=== PATIENT | female | born 1970 | race Caucasian/White ===

== ENCOUNTER 2019-06-16 08:30 | Inpatient (IN) | payer OTHER ==
--- NOTE | 2019-06-10 13:27 | HP ---
Admitting History and Physical - Primary Care Physician PCP: Joseph Roblero - Admission Chief Complaint: Right breast cancer History of Present Illness: 48 year old pre with family H/O breast cancer premenapausal female with mammogram and US 06/2018 wnl . She had a MRI at the same time which showed right breast 12:00 and 1:00 areas of enhancement and were bxs and benign. he underwent a Bilateral MRI 04/2019 which showed bilateral findings and she had a Mammogram and US 04/2019 which did not correlate with Breast MRI findings. She underwent 2 right MRI breast core bxs central and upper outer quadrant. 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 The upper outer quadrant showed benign findings. Barbell clip.She underwent MRI core bxs left breast upper outer quadrant and lower outer quadrant which showed fibrocystic changes History Source: Patient Limitations to Obtaining History: No Limitations - Past Surgical History Additional Past Surgical History: Ablation 14 yrs ago heavy menses - Smoking History Smoking history: Never smoked Have you smoked in the past 12 months: No - Alcohol/Substance Use Hx Alcohol Use: Yes (social) Home Medications - Allergies Allergies/Adverse Reactions: Allergies Allergy/AdvReac Type Severity Reaction Status Date / Time No Known Allergies Allergy Verified 06/10/19 13:28 Family Disease History - Family Disease History Family Disease History: CA: Grandparent (mat GGM uterine ca// pat GGM uterine ca ), Mother (breast ca 56 and JANNA 42 benign) Physical Examination Constitutional: Yes: Well Nourished Breast(s): Yes: Other (moderately ptotic B cup with obvious bruiding form bxs. some thickening upper aspect of left breast and outer aspect right breast no masses or axillary masses palpated) Problem List - Problems (1) Breast cancer, right breast Code(s): C50.911 - MALIGNANT NEOPLASM OF UNSP SITE OF RIGHT FEMALE BREAST Qualifiers: Breast location: central portion of breast Estrogen receptor status: positive Patient sex: female Qualified Code(s): C50.111 - Malignant neoplasm of central portion of right female breast; Z17.0 - Estrogen receptor positive status [ER+] Assessment/Plan Bilateral total mastectomies , right sentenel node biopsy, lymphoscintogram, possible axillary node dissection reconstruction
[2019-06-11 11:46] VITALS: BMI 21.8
[2019-06-16] MEDS ORDERED: BUPIVACAINE HCL/PF (5 MG/ML) 30 ML VIAL IJ ONE (12:57)
[2019-06-16] MEDS ORDERED: BUPIVACAINE LIPOSOME/PF (EXPAREL) 266 MG/20 ML VIAL ONE (12:57)
[2019-06-16] MEDS ORDERED: GENTAMICIN SO4 80 MG/2 ML VIAL ONE (12:57)
[2019-06-16] MEDS ORDERED: BUPIVACAINE HCL/PF 2.5 MG/ML - 30 ML VIAL IJ ONE (12:57)
[2019-06-16] MEDS ORDERED: SODIUM CHLORIDE 0.9% P/F 10 ML VIAL IJ ONE (12:57)
[2019-06-16] MEDS ORDERED: MIDAZOLAM HCL 2 MG/2 ML SINGLE DOSE VIAL ONE (12:59)
[2019-06-16] MEDS ORDERED: ceFAZolin SODIUM 1 GM VIAL ONE ×2 (13:01→14:24)
[2019-06-16] MEDS ORDERED: PROPOFOL 20 ML ONE (13:03)
[2019-06-16] MEDS ORDERED: ROCURONIUM BROMIDE 50 MG/5 ML VIAL ONE ×3 (13:03→17:22)
[2019-06-16] MEDS ORDERED: DEXAMETHASONE SOD PHOSPHATE 4 MG/1 ML VIAL ONE (13:04)
[2019-06-16] MEDS ORDERED: ONDANSETRON 4 MG/2 ML VIAL ONE (13:04)
[2019-06-16] MEDS ORDERED: HYDROmorphone HCL/PF 1 MG/ML AMP ONE (16:40)
[2019-06-16] MEDS ORDERED: ZOLPIDEM TARTRATE 5 MG TABLET PO PRN (17:57)
[2019-06-16] MEDS ORDERED: DEXTROSE 5%-0.45% SALINE 1,000 ML IV SCH (18:00)
[2019-06-16] MEDS ORDERED: GLYCOPYRROLATE 0.2 MG/1 ML VIAL ONE (18:06)
[2019-06-16] MEDS ORDERED: NEOSTIGMINE METHYLSULFATE 0.5 MG/ML - 10 ML MDV ONE (18:06)
[2019-06-16] MEDS: ONDANSETRON 4 MG/2 ML VIAL IVPUSH PRN (18:50)
--- NOTE | 2019-06-16 21:01 | OP ---
DATE OF OPERATION: 06/16/2019 PREOPERATIVE DIAGNOSIS: Right breast central breast cancer. POSTOPERATIVE DIAGNOSIS: Right breast central breast cancer. PROCEDURE: Bilateral total nipple-sparing mastectomies through an inframammary approach with right axillary sentinel lymph node biopsy and bilateral subpectoral direct implant reconstruction with AlloDerm. PRIMARY SURGEON: Graciela Roblero MD SUPERVISOR [employer]INU[employer] W[employer] P[employer] MILL: GILA Lopez Primary surgeon for the bilateral direct implant reconstruction with AlloDerm is Dr. Graciela Grace. There were no complications. Briefly, the patient is a 48-year-old, G3, P2, premenopausal white female, with [place] and [place] descent, who has a history of bilateral MRI core biopsies back in 2018 which were benign. She then in 2019 was found to have some more bilateral MRI findings and underwent 2 separate right breast biopsies in the upper outer quadrants centrally, and the central biopsy came back as a low-grade tubular cancer was which ER/OK positive, HER-2/hannah negative. Separate left breast biopsies were benign. The patient was seen in consultation and given the option of just doing a partial mastectomy, sentinel lymph node biopsy, radiation; however, given these multiple MRI biopsies, with 4 clips in the right breast, 3 clips in the left breast, she decided that she wanted to do bilateral mastectomies and was offered a nipple-sparing technique. She was seen by Dr. Grace, our plastic surgeon, and chose to have direct implant reconstructions. She was brought in for her surgery on June 16, 2019. She first underwent a lymphoscintigraphy at [facility] and was brought to the holding area at [place]. In the holding area, site verification was made and informed consent was obtained. She was brought in to the operating room and laid on the OR table in a supine position. Venodynes were placed on the lower extremities prior to induction. She received general endotracheal anesthesia. Ancef 2 g was given prior to incision. Both breasts were sterilely prepped and draped in the usual fashion with the right arm prepped in the field. At this point, timeout was performed. The right sentinel lymph node biopsy was first performed. An incision was made just below the hair-bearing area of the right axilla and dissection was undertaken and 2 hot lymph nodes were easily found in the level 1 region of the right axilla, with the 1st one having a 10-second gamma count of 1932 and the 2nd with a 10-second gamma count of 2178. There were both sent down to frozen section and to Pathology and were benign. Background counts after removal of these 2 nodes was 18. At this point, the right mastectomy was performed through a 9-cm inframammary incision. The skin edges were everted and the breast was retracted inferiorly using Zurdo clamps. The skin flap was raised using the PEAK radiofrequency device superiorly to the level of the clavicle, medially to the level of the sternum, laterally to the level of the latissimus, and inferiorly below the level of the inframammary fold. The breast was taken down off the pectoralis major muscle from inferior medial to superior lateral, completely removed intact. It was oriented with a long lateral and short superior suture and weighed to allow for appropriate cosmetic result. Skin flaps were trimmed to remove all visual gross breast tissue. A retroareolar biopsy was taken underneath the right nipple-areolar complex and sent for frozen section, came back negative, so the right nipple was spared. Specimen radiograph of the right breast did show 3 of the biopsy clips with the H clip present on the specimen radiograph. Hemostasis was achieved and the wound was copiously irrigated with warm sterile saline. At this point, gloves and instruments were changed and the left breast nipple-sparing mastectomy was performed, again through a 9-cm symmetrical inframammary incision. The skin edges were everted and the breast was retracted inferiorly using Warrens clamps. The skin flap was raised using the PEAK radiofrequency device superiorly to the level of the clavicle, medially to the level of the sternum, laterally to the level of the latissimus, and inferiorly below the level of the inframammary fold. The breast was taken down off the pectoralis major muscle from inferior medial to superior lateral, completely removed intact. It was oriented with a long lateral and short superior suture and weighed to allow for appropriate cosmetic result. A retroareolar biopsy was taken underneath the left nipple-areolar complex and sent for frozen section, came back negative, so the left nipple was spared. Specimen radiograph of the left breast showed 2 of the 3 clips present in the specimen. Hemostasis was achieved and the wound was copiously irrigated with warm sterile saline. At this point, Dr. Grace became the primary surgeon and performed bilateral direct implant reconstruction in the subpectoral location. AlloDerm was sutured into the inferolateral aspects of both pectoralis major muscles to allow for the direct implant reconstruction. Two Dane drains were placed around each implant, brought through separate stab incisions on the lateral skin folds and secured in place using 3-0 nylon suture. All wounds will be closed by Plastic Surgery using interrupted 3-0 PDS suture and running 4-0 subcuticular PDS suture. All sponge and needle counts were correct at the end of the case, and estimated blood loss was about 100 mL. She was hemodynamically stable throughout. We did use the PEAK intraoperative skin perfusion device during the case, which showed good skin perfusion bilaterally. The patient will be admitted postoperatively, after she has recovered, for pain control and wound management. GRACIELA ROBLERO M.D. [id number]
[2019-06-16] MEDS: oxyCODONE HCL 10 MG SUSTAINED ACTING TABLET PO SCH (21:46)
[2019-06-16] MEDS: CEFAZOLIN 1 GM/D5W 1 GM/50 ML BAG IVPB SCH (21:47)
[2019-06-17] MEDS: CEFAZOLIN 1 GM/D5W 1 GM/50 ML BAG IVPB SCH ×4 (03:15→21:21)
[2019-06-17] MEDS: oxyCODONE HCL 5 MG TABLET PO PRN ×2 (03:19→15:58)
[2019-06-17] MEDS: ACETAMINOPHEN 325 MG TABLET (FP) PO PRN ×2 (03:20→21:22)
[2019-06-17] MEDS: ONDANSETRON 4 MG/2 ML VIAL IVPUSH PRN (03:39)
[2019-06-17 08:22] LABS: HEMATOCRIT 29.9 % (32.4-45.2); HEMOGLOBIN 9.9 GM/dl (10.7-15.3); MCH 28.9 pg (25.7-33.7); MCHC 33.1 g/dl (32.0-36.0); MEAN CELL VOLUME 87.3 fl (80-96); MEAN PLT VOLUME 7.6 fl (7.5-11.1); PLATELET COUNT 259 K/MM3 (134-434); RBC 3.43 M/mm3 (3.60-5.2); RDW 11.4 % (11.6-15.6); WHITE BLOOD COUNT 12.1 K/mm3 (4.0-10.8)
--- NOTE | 2019-06-17 08:39 | PN ---
Progress Note, Physician Chief Complaint: Right breast cancer S/P bilateral total mastectomies right sentenel node biopsy with implant and alloderm reconstruction POD #1 History of Present Illness: patient had some nausea and pressure chest pain from surgery, better this am and is eating small amounts, using oxycodone for pain OOB to bathroom - Current Medication List Current Medications: Active Medications Acetaminophen (Tylenol -) 650 mg PO Q4H PRN PRN Reason: FEVER Last Admin: 06/17/19 03:20 Dose: 650 mg Fentanyl (Sublimaze Injection -) 50 mcg IVPUSH Q5M PRN PRN Reason: PAIN-PACU ORDER X 4 DOSES ONLY Last Admin: 06/16/19 18:55 Dose: 50 mcg Heparin Sodium (Porcine) (Heparin -) 5,000 unit SQ BID@0800,2000 NOBLE Cefazolin Sodium (Ancef 1 Gm Premixed Ivpb -) 1 gm in 50 mls @ 100 mls/hr IVPB Q6H-IV NOBLE Stop: 06/23/19 20:59 Last Admin: 06/17/19 03:15 Dose: 100 mls/hr Dextrose/Sodium Chloride (D5-1/2ns -) 1,000 mls @ 100 mls/hr IV ASDIR [facility] Last Admin: 06/16/19 21:47 Dose: 100 mls/hr Ondansetron HCl (Zofran Injection) 4 mg IVPUSH Q6H PRN PRN Reason: NAUSEA AND/OR VOMITING Last Admin: 06/17/19 03:39 Dose: 4 mg Oxycodone HCl (Roxicodone -) 5 mg PO Q4H PRN PRN Reason: MILD PAIN Last Admin: 06/17/19 03:19 Dose: 5 mg Oxycodone HCl (Oxycontin -) 10 mg PO BID NOBLE Stop: 06/17/19 21:59 Last Admin: 06/16/19 21:46 Dose: 10 mg Zolpidem Tartrate (Ambien -) 5 mg PO HS PRN PRN Reason: Insomnia - Objective Vital Signs: Vital Signs Temperature 98.2 F 06/17/19 04:00 Pulse Rate 82 06/17/19 04:00 Respiratory Rate 18 06/17/19 04:00 Blood Pressure 104/62 06/17/19 04:00 O2 Sat by Pulse Oximetry (%) 95 06/17/19 04:31 Constitutional: Yes: No Distress Breast(s): Yes: Other (Bilateral moderate echymosis, incision intact with steristrips ,flaps viable, no signs of infection or hematoma, luisa drains functioning well dressing changed) Labs: CBC, BMP 06/17/19 07:00 Problem List - Problems (1) Breast cancer, right breast Code(s): C50.911 - MALIGNANT NEOPLASM OF UNSP SITE OF RIGHT FEMALE BREAST Qualifiers: Breast location: central portion of breast Estrogen receptor status: positive Patient sex: female Qualified Code(s): C50.111 - Malignant neoplasm of central portion of right female breast; Z17.0 - Estrogen receptor positive status [ER+] Assessment/Plan continue IV antibiotics oxycodone ,valium prn spirometry SCD in bed plan for discharge tomorrow
[2019-06-17] MEDS: oxyCODONE HCL 10 MG SUSTAINED ACTING TABLET PO SCH ×2 (09:48→21:22)
[2019-06-17] MEDS: diazePAM 5 MG TABLET PO PRN ×3 (09:49→21:22)
[2019-06-17] MEDS: HEPARIN NA (PORCINE) 5,000 UNITS/ML 1ML VIAL SQ SCH ×2 (09:49→21:21)
--- NOTE | 2019-06-17 14:06 | PN ---
Progress Note (short form) - Note Progress Note: ANESTHESIA POSTOP 48 YO female POD#1 s/p BL Mastectomy with reconstruction Patient sitting in bed. Pain adequately controlled. Tolerating PO. Ambulating. VSS, Afebrile Continue current care. Encouraged IS. No anesthetic complications
[2019-06-17] MEDS ORDERED: oxyCODONE HCL 5 MG TABLET PO PRN (20:27)
--- NOTE | 2019-06-17 20:56 | OP ---
DATE OF OPERATION: 06/16/2019 SURGEON: Graciela Grace MD PREOPERATIVE DIAGNOSES: 1. Bilateral acquired chest wall deformity status post bilateral mastectomy (611.89). 2. Personal history of genetic carcinoma. POSTOPERATIVE DIAGNOSES: 1. Bilateral acquired chest wall deformity status post bilateral mastectomy (611.89). 2. Personal history of genetic carcinoma. PROCEDURE: 1. Right immediate breast reconstruction utilizing immediate insertion of silicone breast implant and AlloDerm reconstruction. 2. Left immediate breast reconstruction utilizing immediate insertion of silicone breast implant and AlloDerm reconstruction. 3. Intravenous injection of indocyanine green dye and intraoperative diagnostic evaluation of non-coronary intraoperative fluorescein vascular angiography x 2. SURGEON: Dr. Selene Grace ANESTHESIA: General. OPERATIVE PROCEDURE IN DETAIL: The patient was taken to the operating room. After induction of general anesthesia in the supine position, both arms were extended and padded. Venodyne boots were placed. The entire chest wall was painted with ChloraPrep solution over its entire extent, and sterile drapes were placed in the usual fashion. The markings, which had been made in the standing position preoperatively, were reoutlined with the patient's knowledge. Time-out procedure was performed. Attention was turned by Dr. Graciela Roblero to the mastectomies. Bilateral inframammary incisions were made and Dr. Roblero performed mastectomies. This will be dictated under separate cover. Upon completion of the mastectomies, the wounds were copiously irrigated and attention was turned to the right breast. A subpectoral dissection was begun on the right breast, superiorly from the second rib, medially to the sternal fibers, and down to the inframammary fold, elevating the pectoralis major muscle from its insertion. At this point, an 8.0 x 16.0 sheet of AlloDerm Contour medium perforated was brought into the field and sutured superiorly along the pectoralis major muscle after rehydration. This was carried along the lateral mammary fold and down the side of the breast reconstruction. At this point, a Natrelle Inspira Soft-Touch style SSF 485 mL implant was chosen. The left breast tissue removed was 356 gm, and the right breast approximately 283 gm. This implant was placed and then sutured with 3-0 Vicryl suture continued along the inframammary fold, completely covering the implant itself. The exact same procedure was carried out symmetrically on the opposite breast, also placing a Natrelle Inspira Soft-Touch style SSF 485 mL implant in the same subpectoral pocket. Good symmetry was seen in the sitting position. After the implants were in place, the patient was injected with 10 mL of indocyanine green dye and the Spy imaging system was brought into the field. The skin flowed to the right and left breasts and the nipple areolar complex, and the entire skin flaps were evaluated and seen to be viable with good blood flow. Two Dane drains were brought out through separate stab wounds laterally. The Smart Infuser pump catheter was inserted medially and into the subpectoral position. Both wounds were closed symmetrically using 3-0 PDS suture on the deep tissue, 3-0 in a deep dermal fashion, and 4-0 in a subcuticular fashion. Both wounds were dressed sterilely with Mastisol and Steri-Strips with a surgical bra and a compression strap. The patient tolerated the procedure well. She was awakened, extubated and transferred to the recovery room in satisfactory condition. The logging assistant was present during the entire portion of the operation and closure. GRACIELA GRACE M.D. [id number]
[2019-06-18] MEDS: CEFAZOLIN 1 GM/D5W 1 GM/50 ML BAG IVPB SCH ×3 (03:34→08:08)
[2019-06-18 06:17] VITALS: BP 100/59; PULSE 96; TEMP 98.2
[2019-06-18] MEDS: diazePAM 5 MG TABLET PO PRN (07:55)
[2019-06-18] MEDS: ACETAMINOPHEN 325 MG TABLET (FP) PO PRN (07:55)
[2019-06-18] MEDS: HEPARIN NA (PORCINE) 5,000 UNITS/ML 1ML VIAL SQ SCH (07:56)
--- NOTE | 2019-06-18 08:41 | PN ---
Progress Note, Physician Chief Complaint: Right breast cancer S/P bilateral total mastectomies right sentenel node biopsy implant alloderm POD#1 History of Present Illness: patient is eating ,pain controlled with valium and oxycodone ready for discharge today - Current Medication List Current Medications: Active Medications Acetaminophen (Tylenol -) 650 mg PO Q4H PRN PRN Reason: FEVER Last Admin: 06/18/19 07:55 Dose: 650 mg Diazepam (Valium -) 5 mg PO Q8H PRN PRN Reason: WITHDRAWAL(CONT SUBST) Last Admin: 06/18/19 07:55 Dose: 5 mg Heparin Sodium (Porcine) (Heparin -) 5,000 unit SQ BID@0800,2000 [facility] Last Admin: 06/18/19 07:56 Dose: 5,000 unit Cefazolin Sodium (Ancef 1 Gm Premixed Ivpb -) 1 gm in 50 mls @ 100 mls/hr IVPB Q6H-IV NOBLE Stop: 06/23/19 20:59 Last Admin: 06/18/19 08:08 Dose: 100 mls/hr Dextrose/Sodium Chloride (D5-1/2ns -) 1,000 mls @ 100 mls/hr IV ASDIR [facility] Last Admin: 06/16/19 21:47 Dose: 100 mls/hr Ondansetron HCl (Zofran Injection) 4 mg IVPUSH Q6H PRN PRN Reason: NAUSEA AND/OR VOMITING Last Admin: 06/17/19 03:39 Dose: 4 mg Oxycodone HCl (Oxycontin -) 10 mg PO BID [facility] Last Admin: 06/17/19 21:22 Dose: 10 mg Oxycodone HCl (Roxicodone -) 5 mg PO Q4H PRN PRN Reason: PAIN LEVEL 1-5 Last Admin: 06/18/19 07:55 Dose: 5 mg Zolpidem Tartrate (Ambien -) 5 mg PO HS PRN PRN Reason: Insomnia - Objective Vital Signs: Vital Signs Temperature 98.2 F 06/18/19 06:00 Pulse Rate 96 H 06/18/19 06:00 Respiratory Rate 18 06/18/19 06:00 Blood Pressure 100/59 L 06/18/19 06:00 O2 Sat by Pulse Oximetry (%) 94 L 06/18/19 02:00 Constitutional: Yes: No Distress Breast(s): Yes: Other (Bilateral flaps viable incision intact with steristrips ISIDRO drains functioning moderate echymosis) Labs: CBC, BMP 06/17/19 07:00 Problem List - Problems (1) Breast cancer, right breast Code(s): C50.911 - MALIGNANT NEOPLASM OF UNSP SITE OF RIGHT FEMALE BREAST Qualifiers: Breast location: central portion of breast Estrogen receptor status: positive Patient sex: female Qualified Code(s): C50.111 - Malignant neoplasm of central portion of right female breast; Z17.0 - Estrogen receptor positive status [ER+] Assessment/Plan Discharge home today follow up with Dr Grace and Annika silva shower percocet valium cefadroxil
[2019-06-18] MEDS: oxyCODONE HCL 10 MG SUSTAINED ACTING TABLET PO SCH (12:03)
--- NOTE | 2019-06-19 16:36 | PATH ---
Surgical Pathology Report Patient Name: IVELISSE GREER Med. Rec. #: [id number] /Age/Gender: 1970 (Age: 48) / F Account: [id number] Location: [facility] Taken: 06/16/2019 Received: 06/16/2019 Reported: 06/19/2019 Physicians: Joseph Roblero M.D. Specimen(s) Received A: RIGHT BREAST SENTINEL LYMPH NODE # 1 (FS) B: RIGHT BREAST SENTINEL LYMPH NODE # 2 (FS) C: RIGHT BREAST RETRO AREOLAR BIOPSY (FS) D: LEFT BREAST RETROAREOLAR BIOPSY (FS) E: RIGHT BREAST LATERAL MARGIN F: RIGHT BREAST ANTERIOR MARGIN G: RIGHT BREAST H: LEFT BREAST Clinical History R, Invasive" H" clip marker Left, prophylactic Intraoperative Consult Diagnosis A. Right breast, sentinel lymph node #1, frozen section: One negative lymph node. B. Right breast, sentinel lymph node #2, frozen section: One negative lymph node. C. Retroareola, right, frozen section: Negative for malignancy. D. Retroareolar, left, frozen section: Negative for malignancy. Megan Briones, 06/16/19 Final Diagnosis A. lymph node, right sentinel #1, excision (FS): One lymph node, negative for metastatic carcinoma (0/1). b. lymph node, right, sentinel #2, excision (FS): One lymph node, negative for metastatic carcinoma (0/1). C. Retroareola, right breast, biopsy (fs): Benign breast tissue; negative for malignancy. D. Retroareola, left breast, biopsy (FS): Benign breast tissue; negative for malignancy. E. breast, right, lateral margin, excision: Benign breast tissue. F. breast, right, anterior margin, excision: Benign breast tissue. G. breast, right, nipple-sparing mastectomy: Benign breast tissue showing three prior biopsy sites. (See note) No residual carcinoma is identified. Proliferative Fibrocystic changes including cystic apocrine metaplasia, usual ductal hyperplasia (UDH) and stromal fibrosis. Note: Three separate prior biopsy sites are identified in the upper inner quadrant (UIQ), central region and upper outer quadrant (UOQ). Prior biopsies from outside institution are noted and show a 3 mm focus of tubular carcinoma in the right mid central MRI-guided biopsy ([id number]/ our slide review case # [id number]). No residual carcinoma is identified in the current specimen. H. breast, left, nipple-SPARING mastectomy: Benign breast tissue showing three prior biopsy sites. (See note). Proliferative fibrocystic changes including cystic apocrine metaplasia, USUAL DUCTAL HYPERPLASIA (UDH) and stromal fibrosis. Note: Three separate prior biopsy sites are identified in the upper outer quadrant (UOQ) and lower outer quadrant (LOQ). Electronically Signed Deneen Aguilar M.D. Gross Description A. Received fresh for frozen section evaluation, labeled "right breast, sentinel node #1" is a 0.7 x 0.5 x 0.3 cm lymph node with attached fatty tissue. Frozen section is performed on the lymph node. The frozen section residue is entirely submitted in one cassette. B. Received fresh for frozen section evaluation, labeled "right breast, sentinel node # 3" is a 0.6 x 0.4 x 0.3 cm lymph node with attached fatty tissue. Frozen section is performed on the lymph node. The frozen section residue is entirely submitted in one cassette. C. Received fresh for frozen section evaluation, labeled "right retroareolar biopsy" is a 1 x 0.5 x 0.2 cm portion of pink and red salter soft tissue. Frozen section is performed on the specimen. The frozen section residue is entirely submitted in one cassette. D. Received fresh for frozen section evaluation, labeled "left retroareolar biopsy" is a 1.5 x 0.7 x 0.2 cm portion of pink and red salter soft tissue. Frozen section is performed on the specimen. The frozen section residue is entirely submitted in one cassette. E. Received in formalin labeled "right breast lateral margin," is a 5.5 x 4.0 x 1.4 cm portion of fibroadipose tissue with a suture marking the biopsy cavity side, per the surgeon. The new margin is inked blue and the specimen is serially sectioned. The specimen is entirely and sequentially submitted in 10 cassettes. F. Received in formalin labeled "right breast anterior margin," is a 3.4 x 2.5 x 1.0 cm portion of fibroadipose tissue with a suture marking the biopsy cavity side, per the surgeon. The new margin is inked blue and the specimen is serially sectioned. The specimen is entirely and sequentially submitted in 4 cassettes. G. Received in formalin, labeled "right breast tissue," is a 302 gram, 14.5 x 14.0 x 3.7 cm. right mastectomy specimen with a short suture presumably marking the superior aspect and a long suture presumably marking the lateral aspect of the specimen. There is no skin or nipple present. The deep margin is inked black and the anterior soft tissue margin is inked blue. The specimen is serially sectioned from lateral to medial. Sectioning reveals 3 foci of hemorrhage, possibly consistent with previous biopsy sites, present in the upper inner quadrant (UIQ) ,upper outer quadrant (UOQ) and central region. The foci are surrounded by white fibrous tissue. No definitive mass is associated with any of the sites. The remaining breast parenchyma displays multifocal fibrocystic tissue. Income Tax Auditor sections are submitted in 18 cassettes as follows: 1-8-difoaw-most possible previous biopsy site (UIQ) with anterior margin and deep margin; 3-4-second possible previous biopsy site central region with anterior and deep margins; 5-10-third possible previous biopsy site (UOQ) with anterior margin; 54-40-medfqzvajs UIQ tissue; 14-uninvolved UOQ tissue; 15-16-lower inner quadrant; 17-18-lower outer quadrant. Time to formalin fixation: 15 minutes Total formalin fixation time: Approximately 25 hours. H. Received in formalin, labeled "left breast tissue," is a 350 gram, 14.0 x 13.5 x 3.7 cm. left mastectomy specimen with a short suture marking the superior aspect and a long suture marking the lateral aspect of the specimen, per the surgeon. There is no skin or nipple present. The deep margin is inked black and the anterior soft tissue margin is inked blue. The specimen is serially sectioned from medial to lateral. Sectioning reveals 3 foci of hemorrhage, possibly consistent with previous biopsy sites, present in the upper outer quadrant (UOQ) and lower outer quadrant (LOQ). No definitive mass is identified. The remaining breast parenchyma displays multifocal dense white fibrous tissue. Income Tax Auditor sections are submitted in 18 cassettes as follows: 4-8-dlbsfpg-most possible previous biopsy site (UOQ) with deep margin; 1-6-ctnbgnbmse possible previous biopsy site (UOQ); 7-10- possible previous biopsy site (LOQ) with anterior soft tissue margin; 11-15-upper inner quadrant; 16-18-lower inner quadrant. Time to formalin fixation: 17 minutes Total formalin fixation time: Approximately 25 hours. DL/06/17/2019 ebram/06/16/2019
== END 2019-06-18 11:27 | disposition home or self-care (01) | DRG 362 ==
LOC: FM/S 11:56
PROVIDERS: ADMIT Surgery Surgical Oncology; ATTEND Surgery Surgical Oncology
PROC: 0HRV0JZ Replacement of Bilateral Breast with Synthetic Substitute, Open Approach (ICD-10-PCS; principal; 2019-06-16 14:39)
PROC: 0HTV0ZZ Resection of Bilateral Breast, Open Approach (ICD-10-PCS; 2019-06-16 14:39)
PROC: 07B50ZX Excision of Right Axillary Lymphatic, Open Approach, Diagnostic (ICD-10-PCS; 2019-06-16 14:39)
DX: C50.111 Malignant neoplasm of central portion of right female breast (principal); N60.11 Diffuse cystic mastopathy of right breast; Z80.3 Family history of malignant neoplasm of breast; Z17.0 Estrogen receptor positive status [ER+]; Z80.49 Family history of malignant neoplasm of other genital organs
CPT/HCPCS: 36415; 78195-TC; 84703; 85027; 88307-TC; 88331-TC; 94760; A9541; J1644

== ENCOUNTER 2023-08-29 09:17 | Day surgery (SDC) | payer BC ==
[2023-08-27 14:11] VITALS: BMI 25.6
[2023-08-29] MEDS ORDERED: VANCOMYCIN 1,000 MG VIAL (RESTRICTED TO ID ONLY) ONE (09:31)
[2023-08-29] MEDS ORDERED: GENTAMICIN SO4 80 MG/2 ML VIAL ONE (09:31)
[2023-08-29] MEDS ORDERED: ceFAZolin SODIUM 1 GM VIAL ONE (09:31)
[2023-08-29] MEDS ORDERED: BUPIVACAINE HCL/EPINEPHRINE/PF 30 ML VIAL IJ ONE ×2 (09:32→10:57)
[2023-08-29] MEDS ORDERED: LIDOCAINE HCL 2% (20ML MULTI-DOSE VIAL) ONE (09:46)
[2023-08-29] MEDS ORDERED: EPINEPHrine/PF 1 MG/1 ML (1:1,000) AMPULE ONE (09:46)
[2023-08-29] MEDS ORDERED: BENZOIN/ALOE VERA/STORAX/TOLU 58 ML BOTTLE ONE (09:47)
[2023-08-29] MEDS ORDERED: ROCURONIUM BROMIDE 50 MG/5 ML SYRINGE ONE (10:04)
[2023-08-29] MEDS ORDERED: MIDAZOLAM HCL 2 MG/2 ML SINGLE DOSE VIAL ONE (10:04)
[2023-08-29] MEDS ORDERED: PROPOFOL 20 ML ONE ×2 (10:04→11:48)
[2023-08-29] MEDS ORDERED: SUCCINYLCHOLINE CHLORIDE 200 MG/10 ML SYRINGE ONE (11:48)
[2023-08-29] MEDS ORDERED: oxyCODONE HCL 5 MG TABLET PO PRN (11:58)
[2023-08-29] MEDS ORDERED: ONDANSETRON 4 MG/2 ML VIAL IVPUSH PRN (11:58)
[2023-08-29] MEDS ORDERED: LACTATED RINGERS SOLUTION 1,000 ML IV SCH (12:00)
[2023-08-29] MEDS ORDERED: oxyCODONE HCL 5 MG TABLET ONE (13:06)
[2023-08-29 13:27] VITALS: RESP 19; TEMP 98
[2023-08-29 13:31] VITALS: BP 105/63; PULSE 66
== END 2023-08-29 13:40 | disposition home or self-care (01) ==
LOC: FASU 09:17
PROVIDERS: ATTEND Plastic Surgery
PROC: 0HPT0JZ Removal of Synthetic Substitute from Right Breast, Open Approach (ICD-10-PCS; 2023-08-29)
PROC: 0HRV0JZ Replacement of Bilateral Breast with Synthetic Substitute, Open Approach (ICD-10-PCS; 2023-08-29)
PROC: 0HPU0JZ Removal of Synthetic Substitute from Left Breast, Open Approach (ICD-10-PCS; principal; 2023-08-29 10:58)
DX: Z90.13 Acquired absence of bilateral breasts and nipples (principal); Z80.3 Family history of malignant neoplasm of breast; N65.1 Disproportion of reconstructed breast
CPT/HCPCS: 19342; 19371; L8600; 94760